=== PATIENT | female | born 1990 | race Two or more races ===

== ENCOUNTER 2017-10-05 18:40 | Emergency (ER) | payer OTHER ==
[~2017-10-05] VITALS: Ht 149.9 cm; Wt 52.2 kg
[~2017-10-05 18:40] MED LIST: PRENATAL1 TAB; RHOGAM300 MCG/SY IM
== END 2017-10-05 20:32 | disposition home or self-care (01) ==
LOC: ER 18:40
DX: M54.5 Low back pain (principal)

== ENCOUNTER 2019-10-22 09:59 | Emergency (ER) | payer OTHER ==
[~2019-10-22] VITALS: Ht 149.9 cm; Wt 52.2 kg
== END 2019-10-22 13:09 | disposition home or self-care (01) ==
LOC: ER 09:59
DX: N64.4 Mastodynia (principal)

== ENCOUNTER 2020-05-23 01:08 | Emergency (ER) | payer OTHER ==
[~2020-05-23] VITALS: Ht 149.9 cm; Wt 52.2 kg
[2020-05-23] MEDS ORDERED: ECOTRIN81 MG PO (09:09)
== END 2020-05-23 09:30 ==
LOC: ER 01:08 → CPU-OBS 01:40 → ER 01:40
DX: R07.89 Other chest pain (principal); M94.0 Chondrocostal junction syndrome [Tietze]; R00.2 Palpitations
CPT/HCPCS: 93005; G0378; G0379

== ENCOUNTER → 2020-10-07 | Emergency (ER) | payer OTHER ==
[~2020-10-07] VITALS: Ht 149.9 cm; Wt 54.4 kg
[~2020-10-07] MED LIST changes: +ECOTRIN81 MG PO
== END | disposition left against medical advice (07) ==
LOC: ER 02:15
DX: Z53.20 Procedure and treatment not carried out because of patient's decision for unspecified reasons (principal)

== ENCOUNTER 2020-10-31 17:20 | Emergency (ER) | payer OTHER ==
[~2020-10-31] VITALS: Ht 149.9 cm; Wt 54.4 kg
[2020-10-31] MEDS ORDERED: TOPROL XL25 M1 (17:38)
== END 2020-10-31 21:35 | disposition home or self-care (01) ==
LOC: ER 17:20
DX: R51.9 Headache, unspecified (principal)

== ENCOUNTER 2021-05-03 00:03 | Emergency (ER) | payer OTHER ==
[~2021-05-03] VITALS: Ht 149.9 cm; Wt 52.2 kg
[~2021-05-03 00:03] MED LIST changes: +TOPROL XL25 M1
[2021-05-03] MEDS ORDERED: INTESTINEX680 M1 PO (04:03)
[2021-05-03] MEDS ORDERED: LEVSIN/SL0.125 MG SL (04:03)
[2021-05-03] MEDS ORDERED: PEPCID40 MG PO (04:09)
[2021-05-03] MEDS ORDERED: MUPIROCIN22 GM TOP (04:23)
== END 2021-05-03 04:53 ==
LOC: ER 00:03
DX: K29.60 Other gastritis without bleeding (principal)

== ENCOUNTER 2021-12-03 21:12 | Emergency (ER) | payer OTHER ==
[~2021-12-03] VITALS: Ht 149.9 cm; Wt 52.2 kg
[~2021-12-03 21:12] MED LIST changes: +INTESTINEX680 M1 PO; +LEVSIN/SL0.125 MG SL; +MUPIROCIN22 GM TOP; +PEPCID40 MG PO
[2021-12-04] MEDS ORDERED: DOLOGESIC 500-1 EACH PO (03:46)
== END 2021-12-04 03:56 ==
LOC: ER 21:12
DX: B34.8 Other viral infections of unspecified site (principal); R51.9 Headache, unspecified; Z20.828 Contact with and (suspected) exposure to other viral communicable diseases

== ENCOUNTER 2022-04-10 15:51 | Emergency (ER) | payer OTHER ==
[~2022-04-10] VITALS: Ht 149.9 cm; Wt 54.4 kg
[~2022-04-10 15:51] MED LIST changes: +DOLOGESIC 500-1 EACH PO
== END 2022-04-10 19:05 | disposition home or self-care (01) ==
LOC: ER 15:51
DX: J06.9 Acute upper respiratory infection, unspecified (principal); U07.1 COVID-19

== ENCOUNTER 2023-06-23 21:26 | Emergency (ER) | payer OTHER ==
[~2023-06-23] VITALS: Ht 149.9 cm; Wt 58.1 kg
[2023-06-23] MEDS ORDERED: ACETAMINOPHEN 500 MG GEL..CAP PO STA (22:47)
[2023-06-23 23:28] LABS: HEMATOCRIT 40.6 % (36.0-45.00); HEMOGLOBIN 13.4 g/dL (12.0-15.00); MEAN CELL VOLUME 78.6 fL (80.00-100.00); MEAN CORPUSCULAR HEMOGLOBIN 25.9 pg (27.00-32.0); PLATELET COUNT 223 K/uL (150-450); RED BLOOD COUNT 5.17 M/uL (4.00-6.00); RED CELL DISTRIBUTION WIDTH 14.4 % (11.5-14.5)
[2023-06-23 23:33] LABS: INR 1.01; PROTHROMBIN TIME 10.6 SECONDS (9.0-11.5)
[2023-06-23 23:52] LABS: CALCIUM 9.2 mg/dL (8.5-10.1); GFR 96.01; POTASSIUM 3.88 mEq/L (3.5-5.1)
[2023-06-23 23:53] LABS: CREATININE SERUM 0.71 mg/dL (0.55-1.02)
[2023-06-24] MEDS ORDERED: ESGIC 50-325-41 EACH PO (01:52)
== END 2023-06-24 02:04 ==
LOC: ER 21:26
PROVIDERS: General Practice
DX: R51.9 Headache, unspecified (principal)

== ENCOUNTER 2023-11-17 16:16 | Emergency (ER) | payer OTHER ==
[~2023-11-17] VITALS: Ht 149.9 cm; Wt 548.8 kg
[~2023-11-17 16:16] MED LIST changes: +ESGIC 50-325-41 EACH PO
[2023-11-17 17:43] LABS: URINE APPEARANCE Cloudy; URINE BILIRRUBIN Negative (NEGATIVE); URINE BLOOD Negative; URINE COLOR Yellow; URINE GLUCOSE Negative (NEGATIVE); URINE LEUKOCYTE Negative; URINE NITRATE Negative; URINE PROTEIN Negative (NEGATIVE); URINE UROBILINOGEN 0.2 E.U./dl
[2023-11-17 17:44] LABS: URINE BACTERIA 1760.1 uL (0.0-1933); URINE EPITHELIAL CELLS 43.7 uL (0.0-38.8); URINE RBC 588.7 uL (0.0-20.8); URINE WBC 9.5 uL (0.0-23.2)
[2023-11-17 18:20] LABS: URINE YEAST FEW /hpf
[2023-11-17 18:22] LABS: CREATININE SERUM 0.89 mg/dL (0.55-1.02); GFR 73.98; POTASSIUM 4.02 mEq/L (3.5-5.1)
[2023-11-17 18:28] LABS: HEMATOCRIT 38.5 % (36.0-45.00); HEMOGLOBIN 12.7 g/dL (12.0-15.00); MEAN CELL VOLUME 78.2 fL (80.00-100.00); MEAN CORPUSCULAR HEMOGLOBIN 25.9 pg (27.00-32.0); MEAN CORPUSCULAR HGB CONC 33.1 g/dl (32.0-36.0); PLATELET COUNT 232 K/uL (150-450); RED BLOOD COUNT 4.92 M/uL (4.00-6.00); RED CELL DISTRIBUTION WIDTH 12.7 % (11.5-14.5)
[2023-11-17] MEDS ORDERED: KETOROLAC TROMETHAMINE 30 MG VIAL ONE (19:52)
[2023-11-17] MEDS ORDERED: HYOSCYAMINE SULFATE 0.125 MG TAB.SUBL ONE (19:52)
[2023-11-17] MEDS ORDERED: KETOROLAC TROMETHAMINE 30 MG VIAL IV ONE (20:00)
[2023-11-17] MEDS ORDERED: HYOSCYAMINE SULFATE 0.125 MG TAB.SUBL SL ONE (20:00)
== END 2023-11-17 23:23 | disposition home or self-care (01) ==
LOC: ER 16:17
PROVIDERS: Emergency Medicine
DX: K29.70 Gastritis, unspecified, without bleeding (principal); J32.9 Chronic sinusitis, unspecified; N39.0 Urinary tract infection, site not specified; Z20.822 Contact with and (suspected) exposure to COVID-19

== ENCOUNTER → 2023-11-18 | Emergency (ER) | payer OTHER ==
[~2023-11-18] VITALS: Ht 149.9 cm; Wt 54.4 kg
== END | disposition left against medical advice (07) ==
LOC: ER 15:00
DX: Z53.21 Procedure and treatment not carried out due to patient leaving prior to being seen by health care provider (principal)